=== PATIENT | male | born 1980 | race Hispanic/Latino ===

== ENCOUNTER 2024-06-05 16:56 | Emergency (ER) | payer SELFPAY ==
[2024-06-05 17:04] VITALS: BP 141/99
[2024-06-05 17:25] LABS: % Eosinophils 8.8 % (0-6); % Immature Granulocytes 0.2 % (0-0.5); % Lymphocytes 38.7 % (20.5-51.1); % Monocytes 8.4 % (1.7-9.3); % Neutrophils 41.9 % (42.2-75.2); Absolute Basophils 0.2 10^3/uL (0-0.2); Absolute Eosinophils 0.9 10^3/uL (0-0.7); Absolute Lymphocytes 3.8 10^3/uL (1.2-3.4); Absolute Monocytes 0.8 10^3/uL (0.1-0.6); Absolute Neutrophils 4.2 10^3/uL (1.4-6.5); Hematocrit 43.1 % (39.0-52.0); Mean Corp Hgb Conc. 34.8 g/dL (33.0-37.0); Mean Corpuscular Hgb 29.6 pg (27.0-31.0); Mean Corpuscular Volume 85.2 fL (80.0-94.0); Mean Platelet Volume 10.3 fL (7.4-10.4); Nucleated Red Blood Cells % 0 % (-); Platelet Count 320 10^3/uL (130-400); Red Blood Cell Count 5.06 10^6/uL (4.70-6.10); Red Cell Dist. Width 12.4 % (11.5-14.5); White Blood Cell Count 9.9 10^3/uL (4.8-10.8)
[2024-06-05 17:40] LABS: ALT (SGPT) 43 U/L (0-50); AST (SGOT) 29 U/L (17-59); Alkaline Phosphatase 88 U/L (38-126); Blood Urea Nitrogen 18 mg/dl (9-20); Carbon Dioxide 25 mmol/L (22-30); Chloride 100 mmol/L (98-107); Glucose 93 mg/dl (70-99); Potassium 4.3 mmol/L (3.5-5.1); Sodium 136 mmol/L (135-145); Total Bilirubin 0.6 mg/dl (0.2-1.3); Total Protein 7.8 g/dl (6.3-8.2); eGFR > 60.00
[2024-06-05 17:43] LABS: Troponin I < 0.012 ng/ml
[2024-06-05 18:56] VITALS: BP 137/94
[2024-06-05 19:00] VITALS: BP 140/99
[2024-06-05 20:00] VITALS: BP 138/84
[2024-06-05 20:01] LABS: Lipase 189 U/L (23-300)
[2024-06-05 20:06] LABS: D-Dimer < 0.27 ug/mlFEU (0.00-0.50)
--- NOTE | 2024-06-05 20:54 | ED.GENMED ---
History of Present Illness
General
Chief Complaint: Chest Pain
Source: patient and family
Exam Limitations: none
Time Seen by Provider: 06/05/24 18:51
Nursing documentation reviewed up to this point in time: agreed with
History of Present Illness
History of Present Illness:
Patient presents to ED secondary to intermittent midsternal chest pain rating to the back, along with abdominal discomfort over the past 1 month. Symptoms appear to be worse when walking or with meals. Denies fever or chills. Denies shortness of
breath. Denies nausea or vomiting. Denies diarrhea. Denies recent change in diet. Denies recent illness. Patient does not smoke or drink alcohol. There is no family history of heart disease. Denies recent travel or surgery. Denies leg pain
or swelling. There is no family history of blood clots.
Review of Systems
Review of Systems
Allergies reviewed?: Yes
All Other Systems: ROS reviewed and negative except as documented in HPI and ROS
Constitutional: Reports no symptoms
EENT: Reports no symptoms
Respiratory: Reports trouble breathing
Cardiac: Reports chest pain
ABD/GI: Reports abdominal pain; Denies vomiting or diarrhea
Musculoskeletal: Reports no symptoms
Skin: Reports no symptoms
Neurological: Reports no symptoms
Phy Exam
Physical Exam
Physical Exam:
Physical Exam
General: no apparent distress, not acutely ill. afebrile
Head: nc/at. eomi
Neck: supple. no meningeal signs.
Heart: s1/s2 regular rate and rhythm, no murmur.
Lungs: no acute respiratory distress. clear bilaterally. chest wall nontender to palpation.
Abdomen: normal bowel sounds. not tender. no distention.
Neuro: alert and oriented x 3. no focal neurological deficits
Skin: no rash
Psychiatric: well kept. interactive and cooperative
Extremities: no edema. no calf tenderness.
Scores
Heart Score for Chest Pain Patients
STEMI patient?: Not applicable
Course
Orders/Labs/Results
Orders:
Orders
06/05/24 16:57
ECG [Electrocardiogram (*1)] Urgent
Reason for Study: Chest Pain
EKG- Treatment ONCE
06/05/24 17:13
Complete Blood Count/With Diff Urgent
Comprehensive Metabolic Panel Urgent
Lipase Urgent
NT-proBNP Urgent
Comment: ADD ON
Troponin I Urgent
06/05/24 19:28
US Abdomen Complete/Upper Urgent
Comment:
Reason For Exam: RUQ/epigastric pain
06/05/24 19:29
Add On- LAB Urgent
Tests Added?: pro-bnp
CR Chest - 2 Views Urgent
Comment:
Reason For Exam: chest pain
06/05/24 19:39
D-Dimer Urgent
Abnormal Lab Results
06/05/24
17:13
Absolute Lymphs (auto) 3.8 H 10^3/uL
(1.2-3.4)
Absolute Monos (auto) 0.8 H 10^3/uL
(0.1-0.6)
Absolute Eos (auto) 0.9 H 10^3/uL
(0-0.7)
Neutrophils % 41.9 L %
(42.2-75.2)
Eosinophils % 8.8 H %
(0-6)
06/05/24 17:13
06/05/24 17:13
Vital Signs
Initial and Last Documented VS:
Initial Vital Signs
Temp Pulse Resp BP Pulse Ox
98.3 F 89 18 141/99 99
06/05/24 17:04 06/05/24 17:04 06/05/24 17:04 06/05/24 17:04 06/05/24 17:04
Last Documented Vital Signs
Temp Pulse Resp BP Pulse Ox
98.7 F 86 13 136/85 98
06/05/24 21:10 06/05/24 20:32 06/05/24 20:32 06/05/24 21:06 06/05/24 20:32
MDM/Problems Addressed
MDM/Problems Addressed:
History, exam, and ultrasound consistent with symptoms secondary to biliary colic. Patient otherwise is afebrile, hemodynamically stable, and nontoxic-appearing. As such, decision made to discharge patient home with recommendation for diet
modification along with surgery consultation as an outpatient. Advised to return to ED with worsening symptoms, i.e. fever/worsening pain/vomiting.
*Critical Care Note
Total Time (30-74mins, 75-104mins- exclusive of procedures): Not Applicable
ED Attending Note
-
Portions of this chart may have been created with voice recognition software.� Occasional wrong word or��sound alike� substitutions may have occurred due to the inherent limitations of voice recognition software.
Discharge Plan
Departure
Patient Disposition: Home (Routine Discharge)
Date of Disposition: 06/05/24
Time of Disposition: 20:54
Patient with high blood pressure during this ER visit?: Yes
Condition: Fair
Discharge Problem:
Biliary colic
Instructions: Low-fat diet, Gallstones - Discharge instructions
Referrals:
[facility] [Outside]
Jaxon Talley MD [Active] -
NONE,* [Family Provider] -
Activity Restrictions/Additional Instructions:
As discussed, please follow up with referred medical clinic and/or referred general surgeon for further evaluation and treatment. In the meantime, strongly recommend diet modification along with vyoe-kkc-vsojbyy PPI medication, i.e.
Protonix/Prilosec/Pepcid/Nexium. Please consider return to ED with worsening symptoms, i.e. fever/worsening pain/vomiting.
Interventions
Interventions:
*Risk Screen - Suicide Last Done: 06/05/24 21:10
*General Assessment Last Done: 06/05/24 20:40
*Neglect/Abuse Screening Last Done: 06/05/24 21:08
*ED COVID-19 Vaccine History Last Done: 06/05/24 20:40
*Nursing Disposition Last Done: 06/05/24 21:10
ED- Cardiac Assessment Last Done: 06/05/24 20:40
Discharge Date and Time
Print Language: GREENLANDIC
[2024-06-05 21:06] VITALS: BP 136/85
[2024-06-05 21:27] LABS: NT-proBNP 22.3 pg/ml
== END 2024-06-05 21:20 | disposition home or self-care (01) ==
LOC: EMR 16:56
PROVIDERS: Emergency Medicine; EMERGENCY PHYSICIAN Emergency Medicine
DX: K80.70 Calculus of gallbladder and bile duct without cholecystitis without obstruction (principal); R03.0 Elevated blood-pressure reading, without diagnosis of hypertension
CPT/HCPCS: 99285; 71046; 76700; 80053; 83690; 83880; 84484; 85025; 85379; 93005

== ENCOUNTER → 2024-08-04 07:41 | Outpatient (REF) | payer OTHER, SELFPAY ==
[2024-08-04 08:50] LABS: Hematocrit 42.7 % (39.0-52.0); Hemoglobin 14.4 g/dL (13.0-18.0); Mean Corp Hgb Conc. 33.7 g/dL (33.0-37.0); Mean Corpuscular Hgb 29.6 pg (27.0-31.0); Mean Corpuscular Volume 87.7 fL (80.0-94.0); Mean Platelet Volume 10.3 fL (7.4-10.4); Platelet Count 323 10^3/uL (130-400); Red Blood Cell Count 4.87 10^6/uL (4.70-6.10); Red Cell Dist. Width 12.3 % (11.5-14.5); White Blood Cell Count 7.5 10^3/uL (4.8-10.8)
[2024-08-04 09:15] LABS: ALT (SGPT) 32 U/L (0-50); AST (SGOT) 30 U/L (17-59); Albumin 4.9 g/dl (3.5-5.0); Alkaline Phosphatase 93 U/L (38-126); Blood Urea Nitrogen 17 mg/dl (9-20); Calcium 10.1 mg/dl (8.4-10.2); Carbon Dioxide 25 mmol/L (22-30); Chloride 104 mmol/L (98-107); Glucose 116 mg/dl (70-99); HDL Cholesterol 33 mg/dl; LDL Cholesterol, Calculated 123 mg/dl; Potassium 4.8 mmol/L (3.5-5.1); Sodium 140 mmol/L (135-145); Total Bilirubin 0.4 mg/dl (0.2-1.3); Total Cholesterol 192 mg/dl (50-199); Total Protein 7.7 g/dl (6.3-8.2); Triglyceride 182 mg/dl (10-149); Very Low Density Lipoprotein 36 mg/dl (0-30); eGFR > 60.00
[2024-08-04 09:47] LABS: TSH Reflex To Free T4 2.97 uIU/ml (0.47-4.68)
[2024-08-04 10:18] LABS: Glycohemoglobin (HgbA1c) 5.7 % (4.0-5.6)
== END ==
LOC: REG 07:41
PROVIDERS: ATTENDING PHYSICIAN Nurse Practitioner Adult Health
DX: Z00.00 Encounter for general adult medical examination without abnormal findings (principal); R73.03 Prediabetes
CPT/HCPCS: 36415; 80053; 80061; 83036; 84443; 85027

== ENCOUNTER 2024-09-12 06:36 | Emergency (ER) | payer SELFPAY ==
[2024-09-12 06:50] VITALS: BP 130/88
[2024-09-12 08:59] VITALS: BMI 31.7
--- NOTE | 2024-09-12 09:02 | ED.GENMED ---
History of Present Illness
General
Chief Complaint: Abdominal Pain
Time Seen by Provider: 09/12/24 08:44
History of Present Illness
History of Present Illness:
44-year-old male with history of hypertension presenting to the emergency department for right-sided abdominal pain with radiation to his back. Notes symptoms for the past 3 days. Reports that he had similar symptoms in the past, was told that he
has gallstones. Patient tried diet modification, was overall feeling okay, however for the past 3 days increased pain with vomiting. Denies changes in the stool. Denies chest pain or difficulty breathing. Denies fever. Denies urinary
complaints. Notes history of of appendectomy. Denies additional acute medical complaints
Phy Exam
Physical Exam
Physical Exam:
General: Well-appearing, no clinical signs of dehydration, nontoxic and in no acute distress
HEENT: protecting airway
Neck: appears supple
CV: Normal heart rate, regular rhythm
Resp: No accessory muscle use, no increased work of breathing, lungs clear to auscultation bilaterally
Abd: Soft and non-distended, focal tenderness to the right upper quadrant and epigastric abdomen without rebound or guarding. No CVA tenderness
Extremities: No deformities, no swelling
Neuro: alert, no focal neurologic deficit
: deferred
Rectal: deferred
Psych: Normal affect
Skin: Intact
Course
Orders/Labs/Results
Orders:
Orders
09/12/24 07:00
Urinalysis Urgent
Date Specimen was Collected: 09/12/24
Time Specimen was Collected: 07:00
09/12/24 08:57
Lipase Urgent
Urinalysis Reflex To Culture Urgent
Ketorolac [Toradol] 15 mg IV NOW STA
09/12/24 08:59
US Abdomen Complete/Upper Urgent
Comment:
Reason For Exam: RUQ pain, hx stones
09/12/24 09:07
Complete Blood Count/With Diff Urgent
Comprehensive Metabolic Panel Urgent
Lipase Urgent
Abnormal Lab Results
09/12/24
09:07
MPV 11.0 H fL
(7.4-10.4)
Absolute Monos (auto) 0.7 H 10^3/uL
(0.1-0.6)
Glucose 112 H mg/dl
(70-99)
09/12/24 09:07
09/12/24 09:07
Vital Signs
Initial and Last Documented VS:
Initial Vital Signs
Temp Pulse Resp BP Pulse Ox
97.9 F 70 18 130/88 98
09/12/24 06:50 09/12/24 06:50 09/12/24 06:50 09/12/24 06:50 09/12/24 06:50
Last Documented Vital Signs
Temp Pulse Resp BP Pulse Ox
97.9 F 60 16 120/81 99
09/12/24 06:50 09/12/24 09:09 09/12/24 09:09 09/12/24 09:09 09/12/24 09:18
MDM/Problems Addressed
MDM/Problems Addressed:
44-year-old male with history of hypertension presenting for right upper quadrant abdominal pain for 3 days with nausea and vomiting. Vital signs on arrival are normal.
On exam patient resting comfortably, no acute distress or discomfort. Benign cardiac and pulmonary exam. Patient afebrile, nontoxic, without concern for systemic infection. Patient with reproducible tenderness to the right upper quadrant. On
review of EMR, patient seen in the hospital in May, found to have gallstones. Ultimately suspect biliary colic versus developing cholecystitis. Will plan for laboratory analysis and right upper quadrant ultrasound imaging. Toradol
administered for pain
10:50 -ultrasound is consistent with cholelithiasis, however no concerning features for Brenda cystitis. Labs unremarkable. Lipase normal. Continue to suspect symptomatic cholelithiasis. Diet modification discussed. Advised calling surgery for
an appointment and elective removal. Return precautions discussed and patient verbalized understanding
*Critical Care Note
Total Time (30-74mins, 75-104mins- exclusive of procedures): Not Applicable
ED Attending Note
-
Portions of this chart may have been created with voice recognition software.� Occasional wrong word or��sound alike� substitutions may have occurred due to the inherent limitations of voice recognition software.
Discharge Plan
Departure
Referrals:
NONE,* [Family Provider] -
Interventions
Interventions:
*Risk Screen - Suicide Last Done: 09/12/24 06:50
*General Assessment Last Done: 09/12/24 09:00
*Neglect/Abuse Screening Last Done: 09/12/24 06:50
*ED- Fall Risk Assessment Last Done: 09/12/24 09:00
*ED COVID-19 Vaccine History Last Done: 09/12/24 09:00
HP-Qmzhxc-Xgjoxhrghc Assessment Last Done: 09/12/24 09:18
Discharge Date and Time
Print Language: GUAMANIAN
[2024-09-12 09:09] VITALS: BP 120/81
[2024-09-12] MEDS: TORADOL 15 MG IV (09:14)
[2024-09-12 09:22] LABS: % Basophils 1.2 % (0-2); % Eosinophils 2.4 % (0-6); % Immature Granulocytes 0.2 % (0-0.5); % Lymphocytes 26.7 % (20.5-51.1); % Monocytes 7.7 % (1.7-9.3); % Neutrophils 61.8 % (42.2-75.2); Absolute Basophils 0.1 10^3/uL (0-0.2); Absolute Eosinophils 0.2 10^3/uL (0-0.7); Absolute Lymphocytes 2.6 10^3/uL (1.2-3.4); Absolute Monocytes 0.7 10^3/uL (0.1-0.6); Absolute Neutrophils 5.9 10^3/uL (1.4-6.5); Hematocrit 42.8 % (39.0-52.0); Hemoglobin 14.6 g/dL (13.0-18.0); Mean Corp Hgb Conc. 34.1 g/dL (33.0-37.0); Mean Corpuscular Hgb 29.8 pg (27.0-31.0); Mean Corpuscular Volume 87.3 fL (80.0-94.0); Nucleated Red Blood Cells % 0 % (-); Platelet Count 292 10^3/uL (130-400); Red Cell Dist. Width 12.1 % (11.5-14.5); White Blood Cell Count 9.6 10^3/uL (4.8-10.8)
[2024-09-12 09:36] LABS: ALT (SGPT) 34 U/L (0-50); AST (SGOT) 23 U/L (17-59); Albumin 4.6 g/dl (3.5-5.0); Alkaline Phosphatase 91 U/L (38-126); Blood Urea Nitrogen 9 mg/dl (9-20); Calcium 9.7 mg/dl (8.4-10.2); Carbon Dioxide 26 mmol/L (22-30); Chloride 104 mmol/L (98-107); Estimated Creatinine Clearance 123 ml/min; Glucose 112 mg/dl (70-99); Lipase 100 U/L (23-300); Potassium 4.1 mmol/L (3.5-5.1); Sodium 138 mmol/L (135-145); Total Protein 7.8 g/dl (6.3-8.2); eGFR > 60.00
[2024-09-12 11:45] LABS: Urine Albumin 1+ (Neg - Trace); Urine Bilirubin Negative (Negative); Urine Character Clear (Clear); Urine Color Yellow; Urine Glucose Negative (Negative); Urine Ketone 1+ (Negative); Urine Leukocyte Negative (Negative); Urine Nitrite Negative (Negative); Urine Occult Blood Negative (Negative); Urine Urobilinogen Negative (Neg - 1+)
[2024-09-12 11:53] LABS: Urine Squamous Cell 0-2 /LPF (Few); Urine White Cell 0-2 /HPF (0-5)
[2024-09-12 11:54] LABS: Urine Red Blood Cell None Seen /HPF (0-2)
== END 2024-09-12 11:43 | disposition home or self-care (01) ==
LOC: EMR 06:36
PROVIDERS: Emergency Medicine; EMERGENCY PHYSICIAN Student in an Organized Health Care Education/Training Program
DX: K80.20 Calculus of gallbladder without cholecystitis without obstruction (principal); I10 Essential (primary) hypertension
CPT/HCPCS: 99284; 96374; 76700; 80053; 81003; 81015; 83690; 85025

== ENCOUNTER 2024-11-13 06:23 | Day surgery (SDC) | payer OTHER, SELFPAY ==
[2024-11-13] VITALS (8 sets, daily range): BP systolic 100–113; BP diastolic 55–75; BMI 29.2
[2024-11-13] MEDS: IC GREEN 2.5 MG IV (08:45)
[2024-11-13] MEDS: HEPARIN 5000 UNITS SC (08:47)
[2024-11-13] MEDS: TYLENOL 1000 MG PO (08:47)
[2024-11-13] MEDS: NORMOSOL-R/PLASMALYTE-A 1000 IV (08:48)
--- NOTE | 2024-11-13 09:53 | W.IMMPOSTOP ---
Surgical Immed Post Op Note
-
Primary Surgeon: Mayank
Assisting Surgeon: Aram IBARRA
Pre-op Diagnosis: Biliary colic
Post-op Diagnosis: Same
Procedure Performed: Robotic cholecystectomy
Anesthesia Type: GETA
Specimen / Cultures: Gallbladder
Estimated Blood Loss: 3cc
Complications: None immediate
Operative Findings: Elongated gallbladder with severely thickened wall and moderate surrounding fibrosis , fatty encroachment about the infundibulum up to the medial aspect of the fundus
--- NOTE | 2024-11-13 09:55 | OR.RPT ---
Addendum entered and electronically signed by Jaxon Talley MD 11/15/24 13:31:
DOS 11/13/24
Original Note:
Operative Report
Operative Report
Primary Surgeon: Mayank
Assisting Surgeon: Aram IBARRA
Pre-op Diagnosis: Biliary colic
Post-op Diagnosis: Same
Procedure Performed: Robotic cholecystectomy and intraoperative near-infared imaging of major extrahepatic bile ducts
Anesthesia Type: GETA
Specimen / Cultures: Gallbladder
Estimated Blood Loss: 3cc
Complications: None immediate
Operative Findings: Elongated gallbladder with severely thickened wall and moderate surrounding fibrosis , fatty encroachment about the infundibulum up to the medial aspect of the fundus
Indications: This 44M developed right upper quadrant/epigastric pain and on workup was found to have cholelithiasis with normal labwork and a normal size common duct. Laparoscopic cholecystectomy with robotic assist was elected.
Description of procedure: The patient was placed on the operating table in the supine position. General anesthesia was induced. A time-out was completed verifying correct patient, procedure,
site, positioning, and special equipment prior to beginning this procedure. An orogastric tube was placed. The abdomen was prepped and draped in the usual sterile fashion. A stab incision was made in left upper quadrant and the Veress needle was
inserted. Proper position was confirmed by aspiration and saline meniscus test. The abdomen was insufflated with carbon dioxide to a pressure of 12 mmHg. The patient tolerated insufflation well.
An 8mm optical trocar was then inserted in the left upper quadrant. The laparoscope was inserted and the abdomen inspected. No injuries from initial trocar placement or Veress needle insertion were noted. Additional 8mm trocars were then inserted in
the following locations: above the umbilicus, right mid axillary line at the level of the umbilicus and 6cm lateral to this on the right. The abdomen was inspected and no abnormalities were found. The table was placed in the reverse Trendelenburg
position with the right side up. The dome of the gallbladder was grasped with an atraumatic grasper and retracted over the dome of the liver. The infundibulum was also grasped with an atraumatic grasper and retracted toward the right lower
quadrant. Dense omental adhesions to the lateral aspect of the gallbladder were taken down. This maneuver exposed Calot�s triangle. The peritoneum overlying the gallbladder infundibulum was then incised and the cystic duct and cystic artery
identified and circumferentially dissected so that a clear view of the liver was achieved through a window between the cystic duct an cystic artery. This area had wall thickening and fatty infiltration. At this time, the only two structures going
into the gallbladder were the cystic artery and cystic duct. ICG was used to visualize the cystic and common ducts and the common duct was protected.
The cystic duct was then doubly clipped and divided and the and cystic artery was controlled with bipolar and divided. Both structures were taken close to the gallbladder. The gallbladder was then dissected from its peritoneal attachments by
electrocautery. Hemostasis was assured and the gallbladder and contained stones were removed using an endoscopic retrieval bag placed through the umbilical port. The gallbladder was passed off the table as a specimen. The gallbladder fossa was
closely observed for several minutes and hemostasis was assured. There was no evidence of bleeding from the gallbladder fossa or cystic artery or leakage of the bile from the cystic duct stump. The umbilical trocar site was closed at the fascial
level laparoscopically with 2-0 PDS. Secondary trocars were removed under direct vision and noted to be hemostatic. The laparoscope was withdrawn and the umbilical trocar removed. The abdomen was allowed to collapse. The skin was closed with
subcuticular sutures of 4-0 monocryl and topical skin adhesive. The orogastric tube was removed.
The patient tolerated the procedure well and was taken to the postanesthesia care unit in stable condition.
== END 2024-11-13 12:20 | disposition home or self-care (01) ==
LOC: SDS 06:23
PROVIDERS: ATTENDING PHYSICIAN Surgery
DX: K80.10 Calculus of gallbladder with chronic cholecystitis without obstruction (principal); K66.0 Peritoneal adhesions (postprocedural) (postinfection)
CPT/HCPCS: 47563; 88304